=== PATIENT | female | born 1990 | race Caucasian/White ===

== ENCOUNTER 2016-08-28 22:03 | Emergency (ER) | payer OTHER ==
[~2016-08-28 22:03] MED LIST: PRENATAL VITAM1 EA12 PO; ZOFRAN4 M2 PO
== END 2016-08-28 22:51 ==
LOC: EDMED 22:03
DX: O9A.212 Injury, poisoning and certain other consequences of external causes complicating pregnancy, second trimester (principal); S16.1XXA Strain of muscle, fascia and tendon at neck level, initial encounter; Z3A.17 17 weeks gestation of pregnancy

== ENCOUNTER 2016-09-29 03:34 | Inpatient (IN) | payer OTHER ==
[2016-09-29 04:34] LABS: BASO % 0.1 % (0-2); EOS % 0.6 % (0-7); EOSINOPHIL ABSOLUTE COUNT 0.1 tho/cmm (0.0-0.7); HCT-HEMATOCRIT 36.9 % (34.0-49.0); IMMATURE GRANULOCYTES ABSOLUTE 0.04 tho/cmm (0-0.03); IMMATURE GRANULOCYTES PERCENT 0.4 % (0-0.3); LYMPH % 19.6 % (20-45); LYMPH ABSOLUTE COUNT 1.8 tho/cmm (0.8-4.5); MCH (MEAN CORPUSCULAR HGB) 29.2 pg (28.0-32.0); MCHC MEAN CORPUSCULAR HGB CONC 35.2 % (32.0-36.0); MCV (MEAN CELL VOLUME) 82.9 fl (82.0-96.0); MONO % 5.3 % (0-12); MONOCYTE ABSOLUTE COUNT 0.5 tho/cmm (0.0-1.2); NEUTROPHIL ABSOLUTE COUNT 6.8 tho/cmm (1.6-8.0); NEUTROPHIL-AUTOMATED 6.8 tho/cmm (1.6-8.0); PLATELET COUNT 188 tho/cmm (150-450); RED BLOOD COUNT 4.45 mil/cmm (4.00-5.20); RED CELL DISTRIBUTION WIDTH 13.1 % (12.4-16.4); WHITE BLOOD COUNT 9.3 tho/cmm (4.0-10.0)
[2016-09-29 15:09] LABS: BASO % 0.1 % (0-2); EOS % 0.1 % (0-7); HCT-HEMATOCRIT 35.2 % (34.0-49.0); HGB-HEMOGLOBIN 12.3 gm/dl (12.0-15.5); LYMPH % 5.5 % (20-45); LYMPH ABSOLUTE COUNT 0.9 tho/cmm (0.8-4.5); MCH (MEAN CORPUSCULAR HGB) 29.4 pg (28.0-32.0); MCHC MEAN CORPUSCULAR HGB CONC 34.9 % (32.0-36.0); MEAN PLATELET VOLUME 10.4 cmc (9.4-12.4); MONO % 3.4 % (0-12); MONOCYTE ABSOLUTE COUNT 0.6 tho/cmm (0.0-1.2); NEUTROPHIL ABSOLUTE COUNT 15.5 tho/cmm (1.6-8.0); NEUTROPHIL-AUTOMATED 15.5 tho/cmm (1.6-8.0); NEUTROPHILS % 90.9 % (40-80); PLATELET COUNT 259 tho/cmm (150-450); RED BLOOD COUNT 4.19 mil/cmm (4.00-5.20)
[2016-09-29 15:10] LABS: WHITE BLOOD COUNT 17.1 tho/cmm (4.0-10.0)
--- NOTE | 2016-09-29 19:00 | NUR ---
PT DOES NOT WANT TO RECIEVE ABX VIA IM SHOT, RN OFFERS TO START SALINE LOCK PT ALSO DOES NOT WANT THAT TO HAPPEN. REQUESTS THAT NURSE CALL MD AND REQUEST ORAL ABX IF AVAILABLE 1919-NURSE CALLS DR DENNIS AND ORDERS FOR ORAL ABX RECIEVED
--- NOTE | 2016-09-29 22:00 | NUR ---
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 PT EXIBITS NORMAL GRIEVING PROCESS, FAMILY IN NEXT ROOM AND NURSE ALSO IN HALLWAY IF NEEDED. PT AND MADE AWARE OF SUPPORT AVAILABLE IF NEEDED
[2016-09-30] MEDS ORDERED: VIBRAMYCIN100 M1 PO (10:10)
[2016-09-30] MEDS ORDERED: IBUPROFEN800 M1 PO (10:11)
== END 2016-09-30 10:44 | DRG 774 ==
LOC: LDR 03:34
PROVIDERS: ADMIT Obstetrics & Gynecology
PROC: 10E0XZZ Delivery of Products of Conception, External Approach (ICD-10-PCS; principal; 2016-09-30)
DX: O36.4XX0 Maternal care for intrauterine death, not applicable or unspecified (principal); O45.92 Premature separation of placenta, unspecified, second trimester; O60.12X0 Preterm labor second trimester with preterm delivery second trimester, not applicable or unspecified; Z3A.22 22 weeks gestation of pregnancy; Z37.1 Single stillbirth
CPT/HCPCS: J2270; J2405; J2791; J3010